=== PATIENT | female | born 1980 | race Caucasian/White ===

== ENCOUNTER 2017-02-26 13:17 | Emergency (ER) | payer SELFPAY ==
[2017-02-26] MEDS ORDERED: IV NORMAL SALINE 1000ML BAG 1,000 ML IV ONE (14:00)
[2017-02-26] MEDS ORDERED: ONDANSETRON PF 4 MG/2 ML VIAL. IV ONE (14:00)
[2017-02-26] MEDS ORDERED: HYDROmorphone 2 MG/ML VIAL IV ONE (14:00)
--- NOTE | 2017-02-26 14:00 | PHYS DOC ---
Past Medical History Past Medical History: No Pertinent History, Ovarian Cyst Additional Past Medical Histor: ectopic with surgery Past Surgical History: Other Additional Past Surgical Histo: tubal Alcohol Use: Occasionally Additional Information: Daily alcohol use Drug Use: None Adult General Chief Complaint Chief Complaint: ABDOMINAL PAIN [facility] HPI Patient is a 37 year old female who presents with 2 days of lower abdominal pain some nausea but no vomiting or diarrhea; no vaginal bleeding or discharge; no dysuria or frequency or flank pain; no fever; no chest pain or shortness of breath. She reports a prior history of an ectopic with surgery and a ovarian cyst but no other abdominal surgeries. Reports daily alcohol use "only "2 drinks a day. Review of Systems Review of Systems Constitutional: Denies fever or chills [] Eyes: Denies change in visual acuity, redness, or eye pain [] HENT: Denies nasal congestion or sore throat [] Respiratory: Denies cough or shortness of breath [] Cardiovascular: No additional information not addressed in HPI [] GI: Denies abdominal pain, nausea, vomiting, bloody stools or diarrhea [] : Denies dysuria or hematuria [] Musculoskeletal: Denies back pain or joint pain [] Integument: Denies rash or skin lesions [] Neurologic: Denies headache, focal weakness or sensory changes [] Endocrine: Denies polyuria or polydipsia [] Current Medications Current Medications Current Medications Medications (Trade) Dose Ordered Sig/Burton Start Time Stop Time Status Last Admin Dose Admin Ceftriaxone Sodium 50 ml @ 100 mls/hr 1X ONCE 02/26/17 16:15 02/26/17 16:44 Hydromorphone HCl (Dilaudid) 0.5 mg 1X ONCE 02/26/17 14:00 02/26/17 14:01 DC 02/26/17 14:10 0.5 MG Info (Do NOT chart on this entry -- for MONITORING) 1 each PRN DAILY PRN 02/26/17 15:15 02/28/17 15:14 Iohexol (Omnipaque 300 Mg/ml) 75 ml 1X ONCE 02/26/17 15:00 02/26/17 15:01 DC 02/26/17 15:08 75 ML Ondansetron HCl (Zofran) 4 mg 1X ONCE 02/26/17 14:00 02/26/17 14:01 DC 02/26/17 14:10 4 MG Sodium Chloride 1,000 ml @ 1,000 mls/hr 1X ONCE 02/26/17 14:00 02/26/17 14:59 DC 02/26/17 14:09 1,000 MLS/HR Allergies Allergies Allergies Coded Allergies Type Severity Reaction Last Updated Verified Sulfa (Sulfonamide Antibiotics) Allergy Intermediate 02/26/17 Yes Physical Exam Physical Exam Constitutional: Well developed, well nourished, no acute distress, non-toxic appearance. [] HENT: Normocephalic, atraumatic, bilateral external ears normal, oropharynx moist, no oral exudates, nose normal. [] Eyes: PERRLA, EOMI, conjunctiva normal, no discharge. [] Neck: Normal range of motion, no tenderness, supple, no stridor. [] Cardiovascular:Heart rate regular rhythm, no murmur [] Lungs & Thorax: Bilateral breath sounds clear to auscultation [] Abdomen: Bowel sounds normal, soft, no tenderness, no masses, no pulsatile masses. [] Skin: Warm, dry, no erythema, no rash. [] Back: No tenderness, no CVA tenderness. [] Extremities: No tenderness, no cyanosis, no clubbing, ROM intact, no edema. [] Neurologic: Alert and oriented X 3, normal motor function, normal sensory function, no focal deficits noted. [] Psychologic: Affect normal, judgement normal, mood normal. [] Current Patient Data Vital Signs Vital Signs Date Time Temp Pulse Resp B/P (MAP) Pulse Ox O2 Delivery O2 Flow Rate FiO2 02/26/17 16:10 92 16 121/77 (92) 100 02/26/17 15:04 Room Air 02/26/17 13:38 98.5 98.5 Lab Values Laboratory Tests Test 02/26/17 12:39 02/26/17 12:58 02/26/17 13:28 02/26/17 14:10 POC Urine HCG, Qualitative Hcg negative (Negative) Hcg positive (Negative) Urine Collection Type Unknown Urine Color Yellow Urine Clarity Clear Urine pH 6.0 Urine Specific [place] 1.010 Urine Protein Negative mg/dL (NEG-TRACE) Urine Glucose (UA) Negative mg/dL (NEG) Urine Ketones (Stick) Negative mg/dL (NEG) Urine Blood Negative (NEG) Urine Nitrite Negative (NEG) Urine Bilirubin Negative (NEG) Urine Urobilinogen Dipstick 0.2 mg/dL (0.2 mg/dL) Urine Leukocyte Esterase Trace (NEG) Urine RBC 0 /HPF (0-2) Urine WBC 1-4 /HPF (0-4) Urine Squamous Epithelial Cells Many /LPF Urine Bacteria Many /HPF (0-FEW) White Blood Count 16.4 x10^3/uL (4.0-11.0) H Red Blood Count 4.29 x10^6/uL (3.50-5.40) Hemoglobin 12.9 g/dL (12.0-15.5) Hematocrit 37.9 % (36.0-47.0) Mean Corpuscular Volume 88 fL (79-100) Mean Corpuscular Hemoglobin 30 pg (25-35) Mean Corpuscular Hemoglobin Concent 34 g/dL (31-37) Red Cell Distribution Width 13.6 % (11.5-14.5) Platelet Count 228 x10^3/uL (140-400) Neutrophils (%) (Auto) 82 % (31-73) H Lymphocytes (%) (Auto) 9 % (24-48) L Monocytes (%) (Auto) 7 % (0-9) Eosinophils (%) (Auto) 1 % (0-3) Basophils (%) (Auto) 0 % (0-3) Neutrophils # (Auto) 13.5 x10^3uL (1.8-7.7) H Lymphocytes # (Auto) 1.5 x10^3/uL (1.0-4.8) Monocytes # (Auto) 1.2 x10^3/uL (0.0-1.1) H Eosinophils # (Auto) 0.1 x10^3/uL (0.0-0.7) Basophils # (Auto) 0.0 x10^3/uL (0.0-0.2) Segmented Neutrophils % 86 % (35-66) H Band Neutrophils % 2 % (0-9) Lymphocytes % 7 % (24-48) L Monocytes % 3 % (0-10) Eosinophils % 1 % (0-5) Basophils % 1 % (0-3) Toxic Granulation Slight Platelet Estimate Adequate (ADEQUATE) Sodium Level 138 mmol/L (136-145) Potassium Level 3.4 mmol/L (3.5-5.1) L Chloride Level 101 mmol/L (98-107) Carbon Dioxide Level 28 mmol/L (21-32) Anion Gap 9 (6-14) Blood Urea Nitrogen 5 mg/dL (7-20) L Creatinine 0.8 mg/dL (0.6-1.0) Estimated GFR (Cockcroft-Gault) 81.6 BUN/Creatinine Ratio 6 (6-20) Glucose Level 89 mg/dL (70-99) Calcium Level 8.7 mg/dL (8.5-10.1) Total Bilirubin 0.3 mg/dL (0.2-1.0) Aspartate Amino Transferase (AST) 20 U/L (15-37) Alanine Aminotransferase (ALT) 29 U/L (14-59) Alkaline Phosphatase 65 U/L (46-116) Total Protein 7.0 g/dL (6.4-8.2) Albumin 3.3 g/dL (3.4-5.0) L Albumin/Globulin Ratio 0.9 (1.0-1.7) L Lipase 108 U/L (73-393) Laboratory Tests 02/26/17 14:10 Laboratory Tests 02/26/17 14:10 EKG EKG [] Radiology/Procedures Radiology/Procedures CAT scan abdomen and pelvis: [Negative per radiology report] Course & Med Decision Making Course & Med Decision Making Pertinent Labs and Imaging studies reviewed. (See chart for details) Plan to check labs and urine and urine and a CT scan abdomen and pelvis. Plan to treat symptomatically and reexamine. Reexamination patient is resting comfortably. Discussed lab results and CT findings with patient and . Plan to treat UTI; do not suspect serious ovarian pathology such as torsion. Dragon Disclaimer Dragon Disclaimer This electronic medical record was generated, in whole or in part, using a voice recognition dictation system. Departure Departure Impression: Primary Impression: Urinary tract infection Additional Impression: Abdominal pain Disposition: 01 HOME, SELF-CARE Condition: IMPROVED Referrals: NON,STAFF (PCP) Patient Instructions: Abdominal Pain, [id number], Urinary Tract Infection, [id number] Scripts Oxycodone/Apap 5-325 (PERCOCET 5-325 MG TABLET) 1 Each Tablet 1 TAB PO PRN Q6HRS Y for PAIN, #10 TAB 0 Refills Prov: MASSIMO RUIZ MD 02/26/17 Ciprofloxacin Hcl (CIPRO) 500 Mg Tablet 1 TAB PO BID, #14 TAB Prov: MASSIMO RUIZ MD 02/26/17 Problem Qualifiers MASSIMO RUIZ MD Feb 26, 2017 14:00
[2017-02-26 14:12] LABS: BILIRUBIN,URINE NEGATIVE (NEG); GLUCOSE,URINE NEGATIVE (NEG); NITRITE,URINE NEGATIVE (NEG); PROTEIN,URINE NEGATIVE (NEG-TRACE); UROBILINOGEN,URINE 0.2 mg/dL (0.2 mg/dL)
[2017-02-26 14:26] LABS: BASO % 0 % (0-3); EOS % 1 % (0-3); HEMATOCRIT 37.9 % (36.0-47.0); HEMOGLOBIN 12.9 g/dL (12.0-15.5); LYMPH # 1.5 x10^3/uL (1.0-4.8); LYMPH % 9 % (24-48); MEAN CORPUSCULAR HEMOGLOBIN 30 pg (25-35); MEAN CORPUSCULAR HGB CONC 34 g/dL (31-37); MEAN CORPUSCULAR VOLUME 88 fL (79-100); MONO % 7 % (0-9); NEUT % 82 % (31-73); PLATELET COUNT 228 x10^3/uL (140-400); RED BLOOD COUNT 4.29 x10^6/uL (3.50-5.40); RED CELL DISTRIBUTION WIDTH 13.6 % (11.5-14.5); WHITE BLOOD COUNT 16.4 x10^3/uL (4.0-11.0)
[2017-02-26 14:26] LABS: BACTERIA,URINE MANY /HPF (0-FEW); RBC,URINE 0 /HPF (0-2); SQUAMOUS EPITHELIAL CELL,UR MANY /LPF
[2017-02-26 14:30] LABS: CALCIUM 8.7 mg/dL (8.5-10.1); CREATININE 0.8 mg/dL (0.6-1.0); GFR 81.6; POTASSIUM 3.4 mmol/L (3.5-5.1)
[2017-02-26 14:36] LABS: ALBUMIN 3.3 g/dL (3.4-5.0); ALBUMIN/GLOBULIN RATIO 0.9 (1.0-1.7); TOTAL BILIRUBIN 0.3 mg/dL (0.2-1.0)
[2017-02-26 14:51] LABS: % BASOS 1 % (0-3); % EOS 1 % (0-5)
[2017-02-26 14:55] LABS: PLT ESTIMATE ADEQUATE (ADEQUATE); TOXIC GRANULATION SLIGHT
[2017-02-26] MEDS ORDERED: IOHEXOL 300 MG/ML 75 ML VIAL IV ONE (15:00)
[2017-02-26] MEDS ORDERED: CONTRAST GIVEN MC PRN (15:15)
--- NOTE | 2017-02-26 15:44 | RAD ---
CT abdomen and pelvis with contrast 02/26/2017 Clinical indication: Right lower quadrant abdominal pain. Comparison: None. Technique: Multiple CT images of the abdomen and pelvis were obtained following uneventful intravenous menstruation of 75 mL Omnipaque 300. PQRS Compliance Statement: One or more of the following individualized dose reduction techniques were utilized for this examination: 1. Automated exposure control 2. Adjustment of the mA and/or kV according to patient size 3. Use of iterative reconstruction technique Findings: Abdomen and pelvis: Heart size is normal and visualized lung bases are within normal limits. Liver is normal in size and morphology. There is mild focal fatty infiltration in the liver adjacent to the falciform. Gallbladder, spleen, adrenal glands and pancreas are within normal limits. There is a small 10mm superior pole right renal cyst. Left kidney and within normal limits. No intra or extrahepatic bile or ductal dilatation. Abdominal aorta is normal in caliber. Major portal, splenic and visualized upper sparing mesenteric veins are widely patent. Small and large bowel loops are normal in caliber without obstruction. Appendix is normal in appearance. No abdominal free fluid. No abdominal lymphadenopathy. Mildly distended and unopacified urinary bladder within normal limits. Uterus and ovaries are present drinkable evaluated by CT. No iliac or inguinal lymphadenopathy. No pelvic free fluid. There are no destructive osseous lesions. Impression: No appendicitis or CT etiology for patient's reported right lower quadrant abdominal pain.
[2017-02-26 16:10] VITALS: BP 121/77
[2017-02-26] MEDS ORDERED: CIPR500T94 PO (16:16)
[2017-02-26] MEDS ORDERED: OXYC-323 PO (16:16)
[2017-02-26] MEDS ORDERED: cefTRIAXone IM 1 GM VIAL IM ONE (16:45)
== END 2017-02-26 16:50 | disposition home or self-care (01) ==
LOC: ER 13:17
DX: N39.0 Urinary tract infection, site not specified (principal); Z88.2 Allergy status to sulfonamides
CPT/HCPCS: 36415; 74177; 80053; 81001; 81025; 83690; 85007; 85025; 87086; 96361; 96372; 96374; 96375; 99285; J0696; J1170; J2405; J7030; Q9967